=== PATIENT | male | born 1975 | race Two or more races ===

== ENCOUNTER → 2024-12-12 | Outpatient (CLI) | payer MEDICAID, SELFPAY ==
--- NOTE | 2024-12-12 | XR_ITS ---
Examination: PA lateral chest 2 views TECHNIQUE: Upright PA lateral chest 2 views Exam date and time: December 12, 2024 0741 hours Comparison April 26, 2014 INDICATIONS: Diagnosis coccidiomycosis, sores masses on the right side of the neck posterior neck and below the clavicle one month FINDINGS: Normal heart size The lungs are clear. The osseous structures are intact IMPRESSION: No active disease
--- NOTE | 2024-12-12 07:11 | XR_ITS ---
Examination: Ultrasound soft tissue neck TECHNIQUE: Sonographic images soft tissue neck Exam date and time: December 12, 2024 0724 hours INDICATIONS: Multiple painful lumps in the neck noticed beginning one month ago FINDINGS: 50 mm x 8 x 13 mm solid mass posterior soft tissue left neck, abnormal-appearing lymph node Bilateral soft tissue lymphadenopathy, the largest in the lateral right neck 2.5 x 1.6 x 2.1 cm Small cyst 8 mm x 9 mm posterior to the right ear IMPRESSION: Significant cervical lymphadenopathy Recommend CT soft tissue neck with intravenous contrast follow-up
== END | disposition home or self-care (01) ==
PROVIDERS: PCP Family Medicine; Referring Provider Nurse Practitioner Family; Visit Provider Nurse Practitioner Family
DX: R59.0 Localized enlarged lymph nodes (principal)
CPT/HCPCS: 71046; 76536

== ENCOUNTER → 2024-12-20 | Outpatient (CLI) | payer MEDICAID, SELFPAY ==
--- NOTE | 2024-12-20 | XR_ITS ---
Examination: CT soft tissue neck, with intravenous contrast. 2-D coronal reconstructions. 2-D sagittal reconstructions. Date and time of exam :December 20, 2024 0927 hours INDICATIONS: Enlarging right clavicle mass one month. CTDI: vol (mGy):13.3 DLP: (mGycm):102 Technique: 1.25 mm axial sections of the neck of the obtained. Coronal and sagittal reconstructions have been obtained. Intravenous contrast administered 60 cc Isovue-370. Low dose protocols were performed. One or more of the following dose reduction techniques were used; automated exposure control, adjustment of the mA and/or KV according to patient size, use of iterative reconstruction technique. Findings: No nasopharyngeal or oropharyngeal mass Small carotid triangle submental lymph nodes The larynx appears normal 9 mm lymph node adjacent to the right clavicle with surrounding ill-defined density in the soft tissue Adjacent 8mm lymph node and 6 mm lymph node Larger soft tissue mass medial to the clavicle on the right side and 26 mm IMPRESSION: Significant supra and retroclavicular right lymphadenopathy The largest lymph node is amenable to CT-guided biopsy as clinically warranted Consider CT chest abdomen pelvis post intravenous contrast follow-up
--- NOTE | 2024-12-20 | XR_ITS ---
Examination: Ultrasound soft tissue elbow TECHNIQUE: Grayscale sonographic images soft tissue elbow Exam date and time: December 20, 2024 0741 hours INDICATIONS: Palpable lump right elbow 3 weeks. FINDINGS: Mass with edema in the soft tissue at the area concern superior to the elbow 4.4 x 1.5 x 4.2 cm most consistent with abscess IMPRESSION: Findings most consistent with soft tissue abscess at the area concern of elbow
--- NOTE | 2024-12-20 | XR_ITS ---
Examination: CT abdomen with intravenous contrast CT pelvis with intravenous contrast 2-D coronal reconstructions 2-D sagittal reconstructions Date and time of exam:December 20, 2024 0928 hours INDICATIONS: Right clavicle mass, significant supra and retroclavicular right lymphadenopathy, staging. Melena this week CTDI: vol (mGy) 7.61 DLP: (mGycm) 486 Technique: Multiple axial sections of the abdomen and pelvis have been obtained. 64 slice high-resolution scanner used. 3 mm axial sections have been obtained, post intravenous injection 60 cc Isovue-370 2-D sagittal, coronal reconstructions obtained. Low dose protocols were performed. One or more of the following dose reduction techniques were used; automated exposure control, adjustment of the mA and/or KV according to patient size, use of iterative reconstruction technique. Findings: 13 mm nodule right middle lobe image 23 3 mm pulmonary nodule lingular segment image 23 4 mm pulmonary nodule right middle lobe image 30 No visualized liver or splenic lesion No gallstones No pancreatic or adrenal mass Solid mass medial right kidney 36 mm Solid mass medial left kidney 15 mm Aorta normal size No bowel obstruction Normal appendix No diverticulitis Mild free fluid in the pelvis Normal seminal vesicles No prostatomegaly Small fat-containing inguinal hernias Moderate disc narrowing L4-L5, L5-S1 IMPRESSION: Pulmonary nodules as above, recommend CT chest without intravenous contrast follow-up Bilateral solid renal mass lesions consistent with renal cell carcinomas Recommend MRI abdomen kidneys follow-up pre and postcontrast
[2024-12-20 08:43] LABS: Alanine Aminotransferase 18 U/L (10-49); Albumin, Serum 3.8 gm/dL (3.5-5.0); Albumin/Globulin Ratio 0.9 (1.2-2.2); Alkaline Phosphatase 67 U/L (46-116); Anion Gap 5 (7-16); Aspartate Amino Transferase 19 U/L (0-34); BUN/Creatinine Ratio 22 Ratio (12-20); Bilirubin,Total 0.4 mg/dL (0.3-1.2); Blood Urea Nitrogen 22 mg/dL (9-23); Calcium 9.3 mg/dL (8.3-10.6); Calcium (Corrected) 9.5 mg/dL (8.5-10.1); Carbon Dioxide 28.7 mMol/L (20.0-31.0); Chloride 103 mMol/L (98-107); Globulin 4.4 gm/dL (2.3-3.5); Glucose 82 mg/dL (74-106); Osmolality,Calculated 276 (275-295); Potassium 4.1 mMol/L (3.4-5.1); Sodium 137 mMol/L (136-145); Total Protein 8.2 gm/dL (5.7-8.2); eGFR > 60 See Note
== END | disposition home or self-care (01) ==
LOC: CDIM 07:27 → COPL 07:29 → CCTX 01-14 08:52
PROVIDERS: PCP Family Medicine; Referring Provider Nurse Practitioner Family; Visit Provider Nurse Practitioner Family
DX: L02.413 Cutaneous abscess of right upper limb (principal); R59.0 Localized enlarged lymph nodes; R91.8 Other nonspecific abnormal finding of lung field; N28.89 Other specified disorders of kidney and ureter
CPT/HCPCS: 36415; 70491; 74177; 76882; 80053; A4649; Q9967

== ENCOUNTER → 2025-01-01 | Outpatient (CLI) | payer MEDICAID, SELFPAY ==
--- NOTE | 2025-01-01 15:00 | XR_ITS ---
Examination: CT chest with intravenous contrast CT chest without intravenous contrast 2-D reconstructions Date and time of exam:January 01, 2025 1457 hrs. Indications: Right lung pulmonary nodules on CT abdomen study December 20, 2024 CTDI:vol (mGy) 25.4 DLP: (mGycm) 987 Technique: Multiple axial sections of the thorax have been obtained. 3 mm slice thickness, from the hemidiaphragms to above the apices of the lungs. Mediastinal and lung density settings have been obtained. Intravenous contrast administered 60 cc Isovue-370. Noncontrast images have also been obtained. 2-D sagittal coronal images obtained. Low dose protocols were performed. One or more of the following dose reduction techniques were used; automated exposure control, adjustment of the mA and/or KV according to patient size, use of iterative reconstruction technique. Findings: No thoracic aortic aneurysmal dilatation Pulmonary artery segments are not enlarged No paratracheal tracheobronchial or bronchopulmonary adenopathy No pneumonia or pulmonary edema At least 15 mm bilateral pulmonary nodules ranging in size from 2 to 8 mm No visualized liver or splenic lesion Contracted gallbladder No pancreatic or adrenal mass Impression: At least 15 mm noncalcified pulmonary nodules, with this study as baseline recommend 6 month follow-up CT chest without contrast
== END | disposition home or self-care (01) ==
PROVIDERS: PCP Family Medicine; Referring Provider Nurse Practitioner Family; Visit Provider Nurse Practitioner Family
DX: R91.8 Other nonspecific abnormal finding of lung field (principal)
CPT/HCPCS: 71270; A4649; Q9967

== ENCOUNTER → 2025-01-04 | Outpatient (CLI) | payer MEDICAID, SELFPAY ==
--- NOTE | 2025-01-04 | XR_ITS ---
Examination: Soft tissue extremity right forearm Technique: Grayscale sonographic images soft tissue right forearm Exam date and time: December 27, 2024 at 0733 hrs. Indications: Palpable lump in the right forearm note is beginning one year ago Findings: Soft tissue mass at the area concern in the right forearm, 2.5 x 0.4 x 2.1 cm Second more heterogeneous echogenic mass with irregular borders and agree vascularity and skin edema upper elbow 4.6 x 1.9 x 3.9 cm, this may represent abscess Impression: Soft tissue masses as above The larger mass soft tissue elbow may represent an abscess, consider MRI for elbow without contrast follow-up
--- NOTE | 2025-01-04 | XR_ITS ---
Examination: Ultrasound soft tissue right lower back Technique: Grayscale sonographic images soft tissue lower back Exam date and time: January 04, 2025 0742 hrs. Indications: Palpable lump in the lower back with pain noticed beginning 2 months ago Findings: Soft tissue mass in the lower back at the area concern, hypervascular, 3.7 x 0.6 x 3.7 cm mixed echogenicity Impression: Soft tissue mass in the lower back at the area concern, hypervascular, 3.7 x 0.6 x 3.7 cm, consider abscess, soft tissue tumor mass, clinical correlation advised
--- NOTE | 2025-01-04 | XR_ITS ---
Examination: Ultrasound soft tissue thigh Technique: Grayscale sonographic images soft tissue right upper thigh January 04, 2025 0746 hrs. Indications: Palpable mass one year in the thigh Findings: Upper thigh soft tissue mass or skin edema and minimal color flow, 5.5 x 2.1 x 7.1 cm Impression: Soft tissue mass upper thigh at the area concern 5.5 x 2.1 x 7.1 cm, differential would include soft tissue tumor mass, abscess, clinical correlation advised
--- NOTE | 2025-01-04 | XR_ITS ---
Examination: Ultrasound soft tissue extremity right groin Technique: Grayscale sonographic images soft tissue right groin Exam date and time: January 04, 2025 0750 hrs. Indications: Palpable groin mass beginning several weeks ago Findings: Multiple right groin lymph nodes, the largest 1.1 x 2.7 x 1.1 cm Impression: Multiple right groin lymph nodes Given the patient's history of multiple soft tissue possible tumor masses, consider CT scan chest abdomen pelvis soft tissue neck follow-up for staging
== END | disposition home or self-care (01) ==
PROVIDERS: PCP Family Medicine; Referring Provider Nurse Practitioner Family; Visit Provider Nurse Practitioner Family
DX: C41.1 Malignant neoplasm of mandible (principal); C64.2 Malignant neoplasm of left kidney, except renal pelvis; R22.2 Localized swelling, mass and lump, trunk; R22.31 Localized swelling, mass and lump, right upper limb; R22.41 Localized swelling, mass and lump, right lower limb
CPT/HCPCS: 76705; 76882

== ENCOUNTER → 2025-01-12 | Outpatient (CLI) | payer MEDICAID, SELFPAY ==
--- NOTE | 2025-01-12 15:00 | XR_ITS ---
Examination: MRI abdomen with intravenous contrast. MRI abdomen without intravenous contrast. Date and time of exam: January 12, 2025 1504 hrs. Indications: Diagnosis malignant neoplasm left kidney except renal pelvis, CT abdomen pelvis December 20, 2024 solid renal mass lesions Technique: Multiple axial, sagittal and coronal sections of the abdomen obtained. Transverse images, TR 6020, TE 107. T1 weighted transverse images, TR 582, TE 9.5. T2-weighted sagittal images, TR 4000, TE 105. T2-weighted sagittal images, TR 4000, TE 5. Coronal images, TR 4210, TE 107. Axial and coronal images are obtained post 19 cc intravenous injection, gadolinium. Findings: No focal liver lesion No gallstones No extrahepatic biliary tract dilatation Spleen is not enlarged Precontrast images demonstrate multiple bilateral renal cysts Postcontrast images demonstrate subtle enhancing mass medial margin right kidney 29 mm No renal vein thrombus No malignant ascites Aorta normal size Impression: Subtle enhancing mass medial margin right kidney 29 mm consistent with renal cell carcinoma Recommend follow-up dedicated renal sonography with the radiologist in attendance
--- NOTE | 2025-01-12 15:30 | XR_ITS ---
Examination: MRI pelvis with intravenous contrast. MRI pelvis without intravenous contrast. Date and time of exam: January 12, 2025 1504 hrs. Indications: Diagnosis malignant neoplasm right kidney, staging Technique: Multiple axial, sagittal and coronal sections of the pelvis obtained. Transverse images, TR 6020, TE 107. T1 weighted transverse images, TR 582, TE 9.5. T2-weighted sagittal images, TR 4000, TE 105. T2-weighted sagittal images, TR 4000, TE 5. Coronal images, TR 4210, TE 107. Axial and coronal images are obtained post 19 cc intravenous injection, gadolinium. Findings: No common iliac and external iliac internal iliac or common femoral lymphadenopathy Small fat-containing inguinal hernias No free fluid in the pelvis Normal seminal vesicles Mild prostatomegaly Urinary bladder intact Homogeneous marrow signal Impression: No findings of metastatic disease
== END | disposition home or self-care (01) ==
LOC: SMRI 14:16
PROVIDERS: Visit Provider Nurse Practitioner Family
DX: C64.1 Malignant neoplasm of right kidney, except renal pelvis (principal); C64.2 Malignant neoplasm of left kidney, except renal pelvis
CPT/HCPCS: 72197; 74183; A9579

== ENCOUNTER 2025-01-14 07:29 | Outpatient (CLI) | payer MEDICAID, SELFPAY ==
[2025-01-11 12:43] LABS: Basophils # (Auto) 0.1 Thou/mm3 (0.0-0.2); Basophils % (Auto) 1 % (0-2.5); Eosinophils # (Auto) 0.3 Thou/mm3 (0.0-0.5); Eosinophils % (Auto) 3 % (0-10); Hemoglobin 10.3 g/dL (13.5-16.0); Immature Granulocytes % (Auto) 1 % (0-0); Immature Granulocytes Auto 0.07 Thou/mm3 (0.00-0.00); Lymphocytes % (Auto) 20 % (10-50); Mean Corpuscular HGB Conc 31.2 g/dl (31.0-37.0); Mean Corpuscular Hemoglobin 24.8 pg (25.0-35.0); Mean Corpuscular Volume 80 fL (80-100); Monocytes # (Auto) 0.9 Thou/mm3 (0.0-0.8); Monocytes % (Auto) 9 % (0-12); Neutrophils # (Auto) 6.5 Thou/mm3 (1.8-7.7); Neutrophils % (Auto) 66 % (37-80); Nucleated Red Blood Cell % 0 /100 WBC (0); Platelet Count 591 Thou/mm3 (140-440); RDW Standard Deviation 43.7 fL (35.1-43.9); Red Blood Count 4.15 Miln/mm3 (4.50-5.90); White Blood Count 9.9 Thou/mm3 (3.8-10.6)
[2025-01-11 12:44] LABS: Partial Thromboplastin Time 29.9 Seconds (22.0-36.0); Prothrombin Time 11.3 Seconds (9.0-12.2)
[2025-01-14] VITALS (15 sets, daily range): BP systolic 114–136; BP diastolic 76–94; PULSE 77–99; RESP 16–20; TEMP 36.7–37.1; O2SAT 95–100; BMI 30.7
--- NOTE | 2025-01-14 08:30 | XR_ITS ---
Exam: CT-guided upper chest wall soft tissue density mass biopsy DATE: 01/14/2025, 9:17 AM INDICATION: Mass. CTDI: 50.4 DLP: 807 PROCEDURE: After a discussion of risks and benefits informed consent was obtained. Patient was brought to the CT scanner and placed supine on the exam table. Preliminary contrast enhanced CT demonstrated a 1 cm soft tissue density mass at the superior lateral edge of the right clavicle. This was targeted for biopsy. The overlying skin was cleaned and draped in normal sterile surgical fashion. 10 cc of 1% lidocaine was used for local anesthesia. Conscious sedation was begun with direct continuous nursing supervision. Using CT guidance an 18-gauge needle biopsy system was sequentially advanced into the targeted mass. Multiple 18-gauge core biopsy samples were obtained, placed in formalin and sent to lab for analysis. The needle was withdrawn. Hemostasis was achieved. The access site was covered with a sterile dressing. Postbiopsy CT can was performed which demonstrated no evidence of hematoma or other acute complication. Patient tolerated procedure well and was transferred to the holding area for post procedural observation. IMPRESSION: Successful CT-guided right supraclavicular soft tissue mass biopsy as above
--- NOTE | 2025-01-14 08:41 | XR_ITS ---
Examination: CT soft tissue neck, with intravenous contrast. 2-D coronal reconstructions. 2-D sagittal reconstructions. Date and time of exam :January 14, 2025 0907 hrs. Indications: Preop lymph node biopsy today. CTDI: vol (mGy):13.1 DLP: (mGycm):359 Technique: 1.25 mm axial sections of the neck of the obtained. Coronal and sagittal reconstructions have been obtained. Intravenous contrast administered 50 cc Isovue-370. Low dose protocols were performed. One or more of the following dose reduction techniques were used; automated exposure control, adjustment of the mA and/or KV according to patient size, use of iterative reconstruction technique. Findings: Maxillary antra are clear Symmetrical nasopharynx oropharynx Small carotid triangle submental or posterior cervical lymph nodes The larynx appears normal Symmetrical thyroid lobes Normal epiglottis Prominent cervical spondylosis Right tracheobronchial lymphadenopathy, the largest lymph node 21 mm Aorta pulmonary window smaller lymph nodes Right supraclavicular lymph nodes, the largest 17 mm, 28 mm Impression: Significant right supraclavicular lymphadenopathy Partial visualization significant mediastinal lymphadenopathy
[2025-01-14] MEDS: SODIUM CHLORIDE 0.9% 500 ML 500 ML 50 ML IV (09:00)
[2025-01-14] MEDS: fentaNYL CIT INJ 50 mCg/ML AMP 2ML IV (09:29)
[2025-01-14] MEDS: MIDAZOLAM INJ 1 MG/ML VIAL 2 ML IV (09:29)
== END 2025-01-14 11:10 | disposition home or self-care (01) ==
PROVIDERS: Radiology Diagnostic Radiology; Referring Provider Nurse Practitioner Family; Visit Provider Nurse Practitioner Family
DX: D21.9 Benign neoplasm of connective and other soft tissue, unspecified (principal); R59.0 Localized enlarged lymph nodes; Z01.812 Encounter for preprocedural laboratory examination
CPT/HCPCS: 21550; 36415; 70491; 77012; 85025; 85610; 85730; 99152; A4649; J2250; J3010; J7040; Q9967

== ENCOUNTER 2025-02-20 09:41 | Outpatient (RCR) | payer MEDICAID, SELFPAY ==
--- NOTE | 2025-02-20 10:50 | CTCCONSULT_ITS ---
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 BLAYNE [facility] [place] Reason for consultation. Suspected metastasis from likely renal cell referred to the cancer center. History of Present Illness: Patient is a 50-year-old gentleman who felt the lump in his right neck and ultrasound December 12, 2024 showed significant cervical lymphadenopathy. There were bilateral soft tissue lymphadenopathy largest in the lateral right neck 2.5 x 1.[address] of the neck 12/21/2024 revealed a 2.6 cm lymphadenopathy on the right. CT chest 01/01/2025 revealed at least 15 subcentimeter pulmonary nodules noncalcified. 12/20/2024 CT abdomen pelvis revealed pulmonary nodules and bilateral solid renal masses consistent with renal cell CA. Abdominal MRI 01/12/2025 revealed subtle enhancing mass medial right kidney 29 mm consistent with renal cell CA along with bilateral renal cysts. Pelvis MRI showed no mets. CT-guided needle biopsy of the right supra clav node revealed no malignancy. Acid-fast and fungi were both negative. 2 small foci of lymphoid tissue featuring noncaseating granulomata noted. Labs 01/11/2025 CBC revealing WBC 9.9 hemoglobin 10.3 platelets 5 91,000 . CMP unr emarkable. Patient was referred to general surgery in [place] reportedly will see him about a excision of the neck mass. Patient now referred for oncological consultation. Past Medical History: High blood pressure Meds. Lisinopril amlodipine naproxen Allergies none to meds Social History: Denies smoking social drinker has worked industrial maintenance but currently on disability work related Review of Systems: Has had blood in bowel movement muscle pain unexplained weight loss sleep problem felt lumps Physical Exam: General: Adequately nourished gentleman in no acute distress HEENT: Lower right neck supra Clav node level 4 palpable. No oral lesions CV: Chest clear to auscultation heart regular rate and rhythm ABD: Soft and organomegaly tenderness EXT: No signs of clubbing or edema. Assessment:#1. Right lower neck adenopathy 2.[address] biopsy negative but feels like a malignancy, along with multiple subcentimeter nodules lung and right kidney mass that looks like a malignancy on both CT and MRI. #2. Patient has been referred to a surgeon in [place] who reportedly will attempt a surgical biopsy #3. Took the liberty of ordering a PET scan due the high probability that this is a malignancy. #4. Shall see him back in 1 month for follow-up. Thank you for allowing me to evaluate this patient. Cc: Elizabeth CISNEROS [facility] Electronically signed by: Felipe David MD, DABR 02/20/2025 10:48 AM
== END 2025-03-06 23:59 | disposition home or self-care (01) ==
LOC: SCTC 09:41
PROVIDERS: PCP Family Medicine; Referring Provider Radiology Therapeutic Radiology; Visit Provider Radiology Therapeutic Radiology
DX: R59.0 Localized enlarged lymph nodes (principal); R91.8 Other nonspecific abnormal finding of lung field; N28.89 Other specified disorders of kidney and ureter
CPT/HCPCS: 99213; G0463

== ENCOUNTER → 2025-03-28 | Outpatient (CLI) | payer MEDICAID, SELFPAY ==
--- NOTE | 2025-03-28 14:45 | XR_ITS ---
EXAMINATION: PET/CT FUSION SKULL TO THIGH EXAM DATE AND TIME: March 28, [address] soft tissue neck February 14, 2025, MRI abdomen and pelvis January 12, 2025, CT chest January 01, 2025, CT abdomen and pelvis December 20, 2024 INDICATIONS: Diagnosis lymphoma staging prior to treatment CTDI:vol (mGy) 7.81 DLP: (mGycm) 810 PROCEDURE: 17 mCi FDG was administered intravenously To allow for distribution and uptake of radiotracer, the patient was allowed to rest quietly in a shielded room. Imaging was performed on an integrated 16-slice PET/CT scanner, with scanning from the skull base to the mid thigh. CT scanning was performed without oral or intravenous contrast material. FINDINGS: Head and Neck: 8 mm hypermetabolic lymph node medial to the right sternocleidomastoid muscle posterior right neck image 36 Weakly hypermetabolic retroclavicular right lymph node 26 mm 8 mm weakly hypermetabolic lymph node lateral to the left thyroid gland 9 mm hypermetabolic lymph node posterior to the medial right clavicle Chest: 24 mm hypermetabolic right tracheobronchial lymph node Multiple hypermetabolic aortopulmonary window lymph nodes, the largest 12 mm 15 mm hypermetabolic subcarinal lymph node 6 mm hypermetabolic right hilar lymph node Numerous subcentimeter non hypermetabolic pulmonary nodules, better depicted on the high resolution CT chest January 01, 2025 Abdomen and Pelvis: There is no el hypermetabolism in retroperitoneal or pelvic chains. The spleen is normal in size and FDG avidity. Musculoskeletal: Marrow uptake is within normal range. IMPRESSION: Extensive hypermetabolic cervical, retroclavicular and mediastinal lymphadenopathy Numerous non hypermetabolic pulmonary nodules best depicted on the high-resolution CT chest January 01, 2025
== END | disposition home or self-care (01) ==
PROVIDERS: Referring Provider Radiology Therapeutic Radiology; Visit Provider Radiology Therapeutic Radiology
DX: R59.0 Localized enlarged lymph nodes (principal); R91.8 Other nonspecific abnormal finding of lung field; C77.0 Secondary and unspecified malignant neoplasm of lymph nodes of head, face and neck
CPT/HCPCS: 78815; A9552

== ENCOUNTER 2025-04-18 09:27 | Outpatient (RCR) | payer MEDICAID, SELFPAY ==
--- NOTE | 2025-04-18 10:20 | CTCFLWUP_ITS ---
[facility] 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 Patient with palpable adenopathy right neck with imaging studies CT neck chest abdomen pelvis showing significant adenopathy in multiple areas along with lung nodules. PET scan 03/28/2025 showed extensive hypermetabolic cervical retroclavicular mediastinal and pulmonary nodules, the latter being non-hypermetabolic. CT-guided needle biopsy 01/14/2025 right supraclavicular node revealed no malignancy. There were 2 small foci of lymphoid tissue featuring noncaseating granuloma. Stains for AFB and fungi were negative. Patient states that since last visit patient has been diagnosed with valley fever and already taking Diflucan since March with great improvement of symptoms. Has been gaining weight and feeling well overall. Was seen by general surgeon who could not find a note to biopsy. I felt his neck today and could not feel the right supra Gene node that was obvious before. Took the liberty of ordering CT scan neck chest with contrast and we will see him back in 2 months Electronically signed by: Felipe David M.D. 04/18/2025 10:18 AM
== END 2025-05-06 23:59 | disposition home or self-care (01) ==
LOC: SCTC 09:27
PROVIDERS: PCP Nurse Practitioner Family; Referring Provider Nurse Practitioner Family; Visit Provider Radiology Therapeutic Radiology
DX: R59.1 Generalized enlarged lymph nodes (principal); R91.8 Other nonspecific abnormal finding of lung field
CPT/HCPCS: 99213; G0463

== ENCOUNTER → 2025-04-20 | Outpatient (CLI) | payer MEDICAID, SELFPAY ==
--- NOTE | 2025-04-20 10:15 | XR_ITS ---
Examination: MRI right elbow, without contrast Date and time of exam: April 20, [address] scan March 28, 2025 INDICATIONS: Palpable elbow mass posterior distal right humerus 1 year, patient has a diagnosis of lymphoma Technique: Multiple axial sagittal and coronal images of the right elbow have been obtained with the Siemens high-resolution 1.5 Cari MRI scanner. Images obtained include T2-weighted fat-suppressed sagittal sections, TR 3500, TE 46, T2 weighted coronal fat suppressed images, TR 3050, TE 84, T2-weighted transverse fat suppressed images, TR 3260, TE 63, proton density transverse images, TR 4720 TE 46, and T1 weighted coronal images, TR 560, TE 13. Findings: Complex partially cystic mass in the soft tissue posterior to the distal humerus on the medial side is noted at the area of concern, measuring 22 x 10 x 36 mm This mass is in the subcutaneous fatty tissue external to the muscle mass No abnormality of marrow signal involving the distal humerus proximal radius or ulna noted Normal insertion long head of the biceps and the radial tuberosity Common flexor and common extensor tendons as well as collateral ligaments appear intact No ossified joint bodies No avascular necrosis IMPRESSION: 22 x 10 x 36 mm complex partially cystic mass in the soft tissue posterior to the distal humerus on the medial side at the area of concern Differential would include soft tissue tumor mass, recommend this patient return for follow-up MRI elbow post intravenous contrast
== END | disposition home or self-care (01) ==
LOC: SMRI 09:50
PROVIDERS: PCP Nurse Practitioner Family; Referring Provider Nurse Practitioner Family; Visit Provider Nurse Practitioner Family
DX: M25.821 Other specified joint disorders, right elbow (principal); R22.31 Localized swelling, mass and lump, right upper limb
CPT/HCPCS: 73221

== ENCOUNTER → 2025-05-29 | Outpatient (CLI) | payer MEDICAID, SELFPAY ==
--- NOTE | 2025-05-29 15:30 | XR_ITS ---
Examination: CT soft tissue neck with intravenous contrast CT chest with intravenous contrast 2-D sagittal and coronal reconstructions Exam date and time: May 29, [address] soft tissue neck January 14, 2025, PET CT March 28, 2025 INDICATIONS: Diagnosis secondary nonspecified malignant neoplasm lymph nodes head and neck, CT chest January 01, 2025 15 noncalcified pulmonary nodules CTDI:vol (mGy) 46.5 DLP: (mGycm) 1546 Technique: Multiple axial sections of the soft tissue neck thorax have been obtained. Sections have been obtained, 3 mm slice thickness. Mediastinal and lung density settings have been obtained. Intravenous contrast administered, 60 cc Isovue-370. 2-D sagittal, coronal images obtained. Low dose protocols were performed. One or more of the following dose reduction techniques were used; automated exposure control, adjustment of the mA and/or KV according to patient size, use of iterative reconstruction technique. Findings: Symmetrical nasopharynx oropharynx Again noted bilateral carotid triangle lymph nodes, the largest on the left side 11 mm on the right side 9 mm The larynx appears normal Supraclavicular lymph nodes again noted, the largest are on the left side, measuring up to 10 mm Stable tracheobronchial and precarinal lymph nodes AP dimension ascending thoracic aorta 3.8 cm Pulmonary artery segments are not enlarged This study confirms right tracheobronchial 24 mm lymph node and multiple aortopulmonary window lymph nodes as well as 14 mm subcarinal lymph node On this study there are only 2 pulmonary nodules and the nodule in the right middle lobe is stable compared with January 01, 2025 No visualized liver or splenic lesions Contracted gallbladder No pancreatic or adrenal mass Osseous structures are intact IMPRESSION: No progression of cervical or supraclavicular and adenopathy compared to CT soft tissue neck January 14, 2025. Only 2 pulmonary nodules on the current CT chest study, the nodule in the right middle lobe is stable compared to the CT chest January 01, 2025 No new pulmonary nodules compared with January 01, 2025 Stable mediastinal lymphadenopathy compared to PET/CT scan March 28, 2025, suggest continued six-month follow-up CT chest with contrast to document stability of this mediastinal lymphadenopathy
== END | disposition home or self-care (01) ==
PROVIDERS: PCP Nurse Practitioner Family; Referring Provider Radiology Therapeutic Radiology; Visit Provider Radiology Therapeutic Radiology
DX: R91.8 Other nonspecific abnormal finding of lung field (principal); R59.0 Localized enlarged lymph nodes; C77.0 Secondary and unspecified malignant neoplasm of lymph nodes of head, face and neck
CPT/HCPCS: 70491; 71260; A4649; Q9967

== ENCOUNTER 2025-06-18 07:57 | Outpatient (RCR) | payer MEDICAID, SELFPAY ==
--- NOTE | 2025-06-18 08:39 | CTCFLWUP_ITS ---
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 Patient with palpable adenopathy right neck with imaging studies CT neck chest abdomen pelvis showing significant adenopathy in multiple areas along with lung nodules. PET scan 03/26/2025 showed extensive hypermetabolic cervical retroclavicular mediastinal pulmonary nodules the latter being non-hypermetabolic. CT-guided biopsy 01/14/2025 right Sucraid node revealed no malignancy. There were 2 small foci of lymphoid tissue featuring noncaseating granuloma. Stains for AFB and fungi were negative. Patient states that he he has been diagnosed with valley fever now getting antifungal meds and [employer] water with [facility]. Repeat CT neck chest 05/29/2025 revealed no progression of cervical supra Clav node and only 2 pulmonary nodules on current chest study with nodule in right middle lobe stable compared to prior. Patient taking fluconazole and is being followed by infectious the specialist Dr. Pinedo. As I see patient today there is barely palpable cervical lymphadenopathy and lungs are clear. Assessment. Valley fever causing patient's symptoms and radiographic findings, clinically improving. Dr Pinedo also following patient Plan.. Patient will continue follow-up with Elizabeth David at [facility] Recommend repeat CT scan within 6 months of the prior May 31 one, of neck and chest, around the beginning of next year to make sure that lesions have largely cleared. Cc: [facility]. Electronically signed by: Felipe David M.D. 06/18/2025 8:36 AM
== END 2025-07-07 23:59 | disposition home or self-care (01) ==
LOC: SCTC 07:57
PROVIDERS: PCP Nurse Practitioner Family; Referring Provider Nurse Practitioner Family; Visit Provider Radiology Therapeutic Radiology
DX: R59.0 Localized enlarged lymph nodes (principal); R91.8 Other nonspecific abnormal finding of lung field; B38.0 Acute pulmonary coccidioidomycosis
CPT/HCPCS: 99212; G0463

== ENCOUNTER → 2025-07-15 | Outpatient (CLI) | payer MEDICAID, SELFPAY ==
--- NOTE | 2025-07-15 13:34 | XR_ITS ---
Examination: PA lateral chest 2 views TECHNIQUE: Upright PA lateral chest 2 views Date and time: July 15, 2025, 1345 hours INDICATIONS: Diagnosis coccidiomycosis FINDINGS: Comparison December 12, 2024 Normal heart size Mild elevation right hemidiaphragm. No pneumonia or pulmonary edema IMPRESSION: No active disease
== END | disposition home or self-care (01) ==
PROVIDERS: PCP Nurse Practitioner Family; Referring Provider Internal Medicine Infectious Disease; Visit Provider Internal Medicine Infectious Disease
DX: B38.2 Pulmonary coccidioidomycosis, unspecified (principal)
CPT/HCPCS: 71046

== ENCOUNTER → 2025-10-15 | Outpatient (CLI) | payer MEDICAID, SELFPAY ==
--- NOTE | 2025-10-15 | XR_ITS ---
PA and lateral chest film on 10/15/2025 at 8:08 a.m. CLINICAL HISTORY: Follow-up of valley fever, hypertension, shortness of breath for 1 year COMPARISON STUDY: Chest film of 07/15/2025 at 1:45 p.m. Findings the radiographic appearance of the heart, mediastinum and hilar regions is normal. Radiographic appearance of both right and left lungs and pleural space is normal no bony abnormalities are identified anywhere spleen size is normal. On the lateral film there is multilevel moderate degenerative disc space narrowing with surrounding osteophytes. IMPRESSION: 1. 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
== END | disposition home or self-care (01) ==
PROVIDERS: PCP Nurse Practitioner Family; Referring Provider Internal Medicine Infectious Disease; Visit Provider Internal Medicine Infectious Disease
DX: M47.814 Spondylosis without myelopathy or radiculopathy, thoracic region (principal)
CPT/HCPCS: 71046

== ENCOUNTER → 2025-10-25 | Outpatient (CLI) | payer MEDICAID, SELFPAY ==
--- NOTE | 2025-10-25 11:00 | XR_ITS ---
Examination: Retroperitoneal ultrasound, complete Technique: Multiple high resolution grayscale images of the retroperitoneum obtained, including kidneys and bladder. Exam date and time: October 25, 2025, 1101 hours INDICATIONS: MRI examination January 12, 2025 subtle enhancing mass medial margin right kidney 29 mm FINDINGS: Right kidney 8.8 cm renal cortex 1.8 cm Medial mass 4.5 x 4.2 x 4.1 cm Left kidney 10.8 cm renal cortex 2.6 cm Bilateral benign renal cysts No hydronephrosis Contracted urinary bladder Negative for prostatomegaly no prostate nodules IMPRESSION: Medial right renal mass 4.5 x 4.2 x 4.1 cm Recommend repeat MRI abdomen kidneys follow-up pre and postcontrast
== END | disposition home or self-care (01) ==
LOC: CDIM 10-18 13:39 → SDIM 10:42
PROVIDERS: PCP Nurse Practitioner Family; Referring Provider Nurse Practitioner Family; Visit Provider Nurse Practitioner Family
DX: N28.89 Other specified disorders of kidney and ureter (principal)
CPT/HCPCS: 76770